=== PATIENT | male | born 1985 | race Asian ===

== ENCOUNTER 2018-03-11 23:14 | Emergency (ER) | payer OTHER ==
[2018-03-11 23:22] VITALS: BP 113/77; PULSE 83; TEMP 98.2; BMI 27.8
--- NOTE | 2018-03-12 00:17 | PDOC ---
History of Present Illness - General Chief Complaint: Respiratory Stated Complaint: PRODUCTIVE COUGH Time Seen by Provider: 03/11/18 23:18 - History of Present Illness Initial Comments: This 32-year-old man with a lifelong history of asthma and seasonal ALLERGIES presents with a one-week history of productive cough. Current illness began with cough without antecedent runny nose/sore throat/congestion. Patient states that this is a typical presentation for his seasonal ALLERGY symptoms. He was seen in urgent care several days ago because of persistent wheezing. He was prescribed inhaler and prednisone course which he continues to use as prescribed. He presents now because his cough has become productive of brownish sputum in the a.m. turning greenish as the day goes on. He has not had any fever/chills. He has some shortness of breath with exertion. He has 2 previous episodes of pneumonia (4 and 7 years ago). Past History - Past Medical History Allergies/Adverse Reactions: Allergies Allergy/AdvReac Type Severity Reaction Status Date / Time No Known Allergies Allergy Verified 12/23/12 10:57 Home Medications: Ambulatory Orders Albuterol Sulfate Inhaler - [Ventolin Hfa Inhaler -] 1 - 2 inh PO QID 03/11/18 Prednisone 10 mg PO DAILY 03/11/18 Azithromycin [Zithromax 250mg Tablets -] 250 mg PO UTDICT #6 tab 03/12/18 Asthma: Yes COPD: No - Suicide/Smoking/Psychosocial Hx Smoking Status: No Smoking History: Never smoked Have you smoked in the past 12 months: No Number of Cigarettes Smoked Daily: 1 Information on smoking cessation initiated: No Hx Alcohol Use: No Drug/Substance Use Hx: No Substance Use Type: None Review of Systems - Review of Systems Able to Perform ROS?: Yes Comments:: 12 point review of systems is negative except for what is noted in the history of present illness *Physical Exam - Vital Signs Last Vital Signs Temp Pulse Resp BP Pulse Ox 98.2 F 83 18 113/77 100 03/11/18 23:19 03/11/18 23:19 03/11/18 23:19 03/11/18 23:19 03/11/18 23:19 - Physical Exam Comments: GENERAL: Adult male, alert and oriented 3, in no acute distress. Patient is speaking in full sentences without respiratory compromise HEAD: Normal with no signs of trauma. EYES: PERRLA, EOMI, sclera anicteric, conjunctiva clear. ENT: Ears normal, nares patent, oropharynx clear without exudates. Moist mucous membranes. NECK: Normal range of motion, supple without lymphadenopathy, JVD, or masses. LUNGS: Breath sounds equal, clear to auscultation bilaterally. No wheezes, and no crackles. HEART:Regular rate and rhythm, normal S1 and S2 without murmur, rub or gallop. ABDOMEN:.normal bowel sounds No guarding,tenderness or rebound.No masses No distention. EXTREMITIES: Normal range of motion, no edema. No clubbing or cyanosis. No erythema, or tenderness. NEUROLOGICAL: Cranial nerves II through XII grossly intact. Normal speech. No focal neurological deficits. MUSCULOSKELETAL: Back non-tender to palpation, no CVA tenderness SKIN: Warm, Dry, normal turgor, no rashes or lesions noted. Progress Note - Progress Note Progress Note: This 32-year-old man with a history of asthma seasonal ALLERGIES presents with productive cough for the last few days. There is no history of fever. He had been wheezing earlier in this illness but this has generally resolved after inhaler/prednisone course was described by urgent care. Exam notable for clear lung sounds and good air exchange. Because patient has normal breath sounds on exam, and no fever / excellent pulse oximetry on vital signs, no chest x-ray will be performed at this time. Because he is current bronchitis has been progressive and is currently productive of purulent sputum, antibiotics will be prescribed. Patient states that in the past, azithromycin has been quite effective for his episodes of asthmatic bronchitis. Z-Karlos prescription sent to patient's pharmacy. He should continue to use the inhaler and prednisone as prescribed. He had asked for referral information for our dry roaster and Dr. Moulton's contact information will be provided. He should return to the emergency room if he has severe, persistent wheezing or shortness of breath *DC/Admit/Observation/Transfer Diagnosis at time of Disposition: Asthmatic bronchitis Qualifiers: Asthma severity: moderate Asthma persistence: persistent Asthma complication type: uncomplicated Qualified Code(s): J45.40 - Moderate persistent asthma, uncomplicated - Discharge Dispostion Disposition: HOME Condition at time of disposition: Stable - Prescriptions Prescriptions: Azithromycin [Zithromax 250mg Tablets -] 250 mg PO UTDICT #6 tab - Referrals Referrals: Danielito Moulton MD [Staff Physician] - 1 week - Patient Instructions Printed Discharge Instructions: DI for Acute Bronchitis Additional Instructions: Azithromycin Z-Karlos as prescribed Continue inhaler/prednisone as prescribed Rest; drink plenty fluids Follow-up with your general doctor within the next 5 days Follow-up with dry roaster (Dr. Moulton) if you have persistent, recurrent bronchitis - Post Discharge Activity
== END 2018-03-12 00:32 | disposition home or self-care (01) ==
LOC: FER 23:14
DX: J45.40 Moderate persistent asthma, uncomplicated (principal)
CPT/HCPCS: 99281-25

== ENCOUNTER 2021-02-28 00:02 | Emergency (ER) | payer OTHER ==
[2021-02-28] MEDS ORDERED: LIDOCAINE 5% TOPICAL PATCH TP ONE (01:01)
[2021-02-28] MEDS ORDERED: KETOROLAC TROMETHAMINE 30 MG/1 ML VIAL IM ONE (01:02)
[2021-02-28] MEDS ORDERED: LIDOCAINE 5% TOPICAL PATCH ONE (01:04)
[2021-02-28 01:07] VITALS: BP 109/79; PULSE 81; TEMP 97.8; BMI 27.1
[2021-02-28] MEDS ORDERED: METHOCARBAMOL 500 MG TABLET PO ONE (01:16)
[2021-02-28] MEDS ORDERED: METHOCARBAMOL 500 MG TABLET ONE (01:26)
[2021-02-28] MEDS ORDERED: KETOROLAC TROMETHAMINE 30 MG/1 ML VIAL ONE (01:26)
[2021-02-28] MEDS ORDERED: LIDOCAINE PATCH REMOVAL MC SCH (22:00)
== END 2021-02-28 04:27 | disposition home or self-care (01) ==
LOC: JER 00:02
PROC: 3E0233Z Introduction of Anti-inflammatory into Muscle, Percutaneous Approach (ICD-10-PCS; principal; 2021-02-28)
DX: S16.1XXA Strain of muscle, fascia and tendon at neck level, initial encounter (principal); R20.2 Paresthesia of skin
CPT/HCPCS: 99284-25